=== PATIENT | male | born 2000 | race Hispanic/Latino ===

== ENCOUNTER 2020-12-24 14:34 | Observation (INO) | payer BC ==
[~2020-12-24] VITALS: Ht 165.1 cm; Wt 92.1 kg
[2020-12-24] MEDS ORDERED: SODIUM CHLORIDE 0.9% 1000ML 1,000 ML IV ONE (14:54)
[2020-12-24] MEDS ORDERED: DICYCLOMINE HCL 10 MG/ML 2ML AMP IM ONE (14:55)
[2020-12-24] MEDS ORDERED: MAG HYDROX/AL HYDROX/SIMETH ES 30 ML SUSP UDCUP ONE (14:55)
[2020-12-24] MEDS ORDERED: LIDOCAINE HCL 2% VISCOUS 15 ML UDCUP ONE (14:55)
[2020-12-24] MEDS ORDERED: FAMOTIDINE 20MG TAB 20 MG TAB ONE (14:56)
[2020-12-24 14:58] LABS: BASOPHILS % (AUTO) 0.3 % (0.0-5.0); EOSINOPHILS % (AUTO) 0.3 % (0.0-8.0); HEMATOCRIT 41.8 % (42-54); LYMPHOCYTES % (AUTO) 11.1 % (21.0-51.0); MEAN CORPUSCULAR HEMOGLOBIN 29.9 pg (27.0-33.0); MEAN CORPUSCULAR HGB CONC 35.2 g/dL (32.0-36.0); MONOCYTES % (AUTO) 4.9 % (3.0-13.0); NEUTROPHILS % (AUTO) 82.9 % (40.0-77.0); PLATELET COUNT (AUTO) 246 K/uL (130-400); RED BLOOD CELL COUNT(AUTO) 4.92 MIL/uL (4.50-6.20); RED CELL DISTRIBUTION WIDTH 11.9 % (11.0-15.5); WHITE BLOOD COUNT (AUTO) 18.8 K/uL (4.8-10.8)
[2020-12-24 15:06] LABS: APPEARANCE,URINE Clear (CLEAR); BILIRUBIN,URINE Negative (NEGATIVE); COLOR,URINE Yellow (YELLOW); GLUCOSE, URINE (UA) Negative (NEGATIVE); KETONES,URINE Negative (NEGATIVE); LEUKOCYTE ESTERASE ,URINE Negative (NEGATIVE); NITRATE,URINE Negative (NEGATIVE); OCCULT BLOOD,URINE Negative (NEGATIVE); PH,URINE 5.5 (5.0-8.0); PROTEIN,URINE Negative (NEGATIVE)
[2020-12-24 15:08] LABS: CREATININE 0.9 mg/dL (0.5-1.5); POTASSIUM 3.9 mmol/L (3.5-5.1)
[2020-12-24 15:13] LABS: ALBUMIN 4.4 g/dL (3.5-5.0); BILIRUBIN,TOTAL 0.6 mg/dL (0.2-1.0); TOTAL PROTEIN, SERUM 7.5 g/dL (6.0-8.3)
[2020-12-24] MEDS ORDERED: MORPHINE SULFATE 2 MG/ML 1ML SYG ONE (15:34)
[2020-12-24] MEDS ORDERED: ZOSYN 3.375GM+NS 50ML 50 ML IV ONE (15:34)
[2020-12-24] MEDS ORDERED: IOHEXOL-350 75 ML VIAL IV ONE (16:26)
[2020-12-24] MEDS ORDERED: LACTATED RINGERS 1000ML 1,000 ML IV SCH (17:45)
[2020-12-24] MEDS ORDERED: LACTATED RINGERS 1000ML 1,000 ML IV ONE (18:26)
[2020-12-24] MEDS ORDERED: ACETAMINOPHEN 325 MG TAB PO PRN ×2 (20:45)
[2020-12-24] MEDS ORDERED: ONDANSETRON HCL 4 MG/2 ML VIAL IV PRN (20:45)
[2020-12-24] MEDS ORDERED: MAG HYDROX/AL HYDROX/SIMETH ES 30 ML SUSP UDCUP PO PRN (20:45)
[2020-12-24] MEDS ORDERED: DiphenhydrAMINE HCL 50 MG/ML VIAL IV PRN (20:45)
[2020-12-24] MEDS ORDERED: GUAIFENESIN-DM 200/20 MG 10 ML PO PRN (20:45)
[2020-12-24] MEDS ORDERED: MORPHINE SULFATE 2 MG/ML 1ML SYG IV PRN ×2 (20:45→21:00)
[2020-12-24] MEDS: LACTATED RINGERS 1000ML 1,000 ML IV SCH (20:45)
[2020-12-24] MEDS ORDERED: NITROGLYCERIN 0.4 MG SL TAB SL PRN (20:45)
[2020-12-24] MEDS ORDERED: DIPHENHYDRAMINE HCL 25 MG CAPSULE PO PRN (20:45)
[2020-12-24] MEDS ORDERED: LACTULOSE 20 GM/30 ML UDCUP PO PRN (20:45)
[2020-12-24 21:28] VITALS: BP 102/42
[2020-12-24] MEDS: FAMOTIDINE/PF 20 MG/2 ML VIAL IV SCH (22:26)
[2020-12-24] MEDS ORDERED: ZOSYN 3.375GM+NS 50ML 50 ML IV SCH (23:00)
[2020-12-24] MEDS ORDERED: METRONIDAZOLE 500MG/100ML BAG 0 ML ONE (23:08)
[2020-12-24 23:51] VITALS: BP 98/50
[2020-12-25 04:06] VITALS: BP 114/49
[2020-12-25] MEDS: METRONIDAZOLE 500MG/100ML BAG 100 ML IVPB SCH ×2 (05:07→14:18)
[2020-12-25] MEDS: LACTATED RINGERS 1000ML 1,000 ML IV SCH (05:12)
[2020-12-25 05:17] LABS: BASOPHILS % (AUTO) 0.3 % (0.0-5.0); EOSINOPHILS % (AUTO) 0.7 % (0.0-8.0); HEMATOCRIT 41.7 % (42-54); LYMPHOCYTES % (AUTO) 25.7 % (21.0-51.0); MEAN CORPUSCULAR HEMOGLOBIN 28.8 pg (27.0-33.0); MEAN CORPUSCULAR HGB CONC 33.3 g/dL (32.0-36.0); MEAN CORPUSCULAR VOLUME 86.5 fL (80-100); MONOCYTES % (AUTO) 10.6 % (3.0-13.0); NEUTROPHILS % (AUTO) 62.4 % (40.0-77.0); PLATELET COUNT (AUTO) 233 K/uL (130-400); RED BLOOD CELL COUNT(AUTO) 4.82 MIL/uL (4.50-6.20); RED CELL DISTRIBUTION WIDTH 11.9 % (11.0-15.5); WHITE BLOOD COUNT (AUTO) 10.6 K/uL (4.8-10.8)
[2020-12-25 05:24] LABS: CREATININE 0.9 mg/dL (0.5-1.5); POTASSIUM 3.5 mmol/L (3.5-5.1)
[2020-12-25 08:25] VITALS: BP 102/51
[2020-12-25] MEDS ORDERED: LEVOFLOXACIN 750 MG/D5W 150 ML 150 ML IV SCH (09:00)
[2020-12-25] MEDS: FAMOTIDINE/PF 20 MG/2 ML VIAL IV SCH (09:27)
[2020-12-25 11:00] VITALS: BP 108/47
[2020-12-25] MEDS ORDERED: CIPR500S5 PO (16:21)
[2020-12-25] MEDS ORDERED: METR-172 PO (16:21)
[2020-12-25 17:05] VITALS: BP 103/49
== END 2020-12-25 17:40 | disposition home or self-care (01) ==
LOC: EDH 14:34 → EDHIP 17:40 → 3DH 20:51
PROVIDERS: ADMIT Internal Medicine; ATTEND Internal Medicine
DX: R10.9 Unspecified abdominal pain (principal); Z20.822 Contact with and (suspected) exposure to COVID-19; D72.829 Elevated white blood cell count, unspecified; R11.0 Nausea; Z88.0 Allergy status to penicillin
CPT/HCPCS: 36415 ×2; 74177; 80048; 80053; 81003; 83690; 84484; 85025 ×2; 87426; 96361; 96365; 96366; 96375 ×2; 96376; 99291; G0378 ×24; J0500; J1956; J2543 ×2; J3490 ×4; J7030; J7120; Q9967; U0003

== ENCOUNTER 2021-07-24 00:28 | Observation (INO) | payer BC ==
[~2021-07-24] VITALS: Ht 165.1 cm; Wt 90.5 kg
[2021-07-24] VITALS (19 sets, daily range): BP systolic 107–161; BP diastolic 52–82
[~2021-07-24 00:28] MED LIST: CIPR500S5 PO; METR-172 PO
[2021-07-24 01:37] LABS: BASOPHILS % (AUTO) 0.3 % (0.0-5.0); EOSINOPHILS % (AUTO) 0.7 % (0.0-8.0); HEMATOCRIT 42.1 % (42-54); LYMPHOCYTES % (AUTO) 9.3 % (21.0-51.0); MEAN CORPUSCULAR HEMOGLOBIN 29.6 pg (27.0-33.0); MEAN CORPUSCULAR HGB CONC 34.9 g/dL (32.0-36.0); MEAN CORPUSCULAR VOLUME 84.9 fL (79-99); MONOCYTES % (AUTO) 6.2 % (3.0-13.0); NEUTROPHILS % (AUTO) 82.7 % (40.0-77.0); PLATELET COUNT (AUTO) 233 K/uL (130-400); RED BLOOD CELL COUNT(AUTO) 4.96 MIL/uL (4.50-6.20); RED CELL DISTRIBUTION WIDTH 12.1 % (11.0-15.5)
[2021-07-24 01:38] LABS: APPEARANCE,URINE Clear (CLEAR); BILIRUBIN,URINE Negative (NEGATIVE); COLOR,URINE Yellow (YELLOW); GLUCOSE, URINE (UA) Negative (NEGATIVE); KETONES,URINE Trace mg/dL (NEGATIVE); LEUKOCYTE ESTERASE ,URINE Trace (NEGATIVE); NITRATE,URINE Negative (NEGATIVE); OCCULT BLOOD,URINE Negative (NEGATIVE); PROTEIN,URINE Trace mg/dL (NEGATIVE)
[2021-07-24 01:43] LABS: CARBON DIOXIDE 27 mmol/L (21-32); CHLORIDE 105 mmol/L (101-111); CREATININE 0.9 mg/dL (0.5-1.5); GLOMERULAR FILTR. RATE CALC 112 mL/min (>60); GLUCOSE,RANDOM 124 mg/dL (70-105); POTASSIUM 3.5 mmol/L (3.5-5.1); SODIUM SERUM 143 mmol/L (136-145); UREA NITROGEN, BLOOD 11 mg/dL (7-18)
[2021-07-24 01:47] LABS: ALANINE AMINOTRANSFERASE 141 U/L (12-78); ALBUMIN 4.4 g/dL (3.5-5.0); ASPARTATE AMINOTRANSFERASE 52 U/L (10-37); BILIRUBIN,TOTAL 0.4 mg/dL (0.2-1.0); TOTAL PROTEIN, SERUM 7.7 g/dL (6.0-8.3)
[2021-07-24 01:49] LABS: LIPASE < 50 U/L (114-286)
[2021-07-24 01:58] LABS: RBC,URINE 0-1 /HPF (0-1)
[2021-07-24 01:59] LABS: BACTERIA,URINE None Seen /HPF (None Seen); MUCUS,URINE Few LPF (None Seen); SQUAMOUS EPITHELIAL CELL,UR None Seen /HPF (0-2)
[2021-07-24] MEDS ORDERED: METOCLOPRAMIDE 10 MG/2 ML VIAL IVP ONE (02:30)
[2021-07-24] MEDS ORDERED: 0.9%NACL 1000ML 1,000 ML IV ONE ×2 (02:30→06:00)
[2021-07-24] MEDS ORDERED: ONDANSETRON 4MG INJ IVP ONE (02:30)
[2021-07-24] MEDS ORDERED: KETOROLAC 30MG VIAL (30MG/ML) IV ONE (02:30)
[2021-07-24] MEDS ORDERED: IOHEXOL 350 MG/ML 100ML INFUS..BTL IV ONE (02:46)
[2021-07-24] MEDS ORDERED: MORPHINE 2 MG SYG IVP ONE (06:00)
[2021-07-24] MEDS ORDERED: ZOSYN 3.375GM+NS 50ML 3.38 GM in 0.9%NACL 50ML 50 ML IV ONE (06:00)
[2021-07-24] MEDS ORDERED: ZOSYN 3.375GM+NS 50ML 50 ML ONE (06:09)
[2021-07-24] MEDS ORDERED: ZOSYN 3.375GM+NS 50ML 3.38 GM in 0.9%NACL 50ML 50 ML IV SCH (07:00)
[2021-07-24] MEDS ORDERED: ONDANSETRON 4MG INJ IV PRN (07:00)
[2021-07-24] MEDS ORDERED: MORPHINE 4 MG SYG IM PRN (07:30)
[2021-07-24] MEDS ORDERED: MORPHINE 2 MG SYG IVP PRN (07:30)
[2021-07-24] MEDS: LACTATED RINGERS 1000ML 1,000 ML IV SCH ×5 (08:26→17:00)
[2021-07-24] MEDS: FAMOTIDINE 20MG VIAL IV SCH ×2 (08:26→19:54)
[2021-07-24] MEDS: ZOSYN 3.375GM+NS 50ML 50 ML IV SCH ×2 (12:40→19:55)
[2021-07-24] MEDS ORDERED: 0.9%NACL 50ML 50 ML IV ONE (12:51)
[2021-07-24] MEDS ORDERED: MIDAZOLAM HCL 1 MG/ML 2ML VIAL ONE (14:55)
[2021-07-24] MEDS ORDERED: ONDANSETRON 4MG INJ ONE (14:56)
[2021-07-24] MEDS ORDERED: LIDOCAINE PF 100MG/5ML (2%) SYRINGE 5ML ONE (15:09)
[2021-07-24] MEDS ORDERED: PROPOFOL 10 MG/ML 20ML VIAL IV ONE (15:09)
[2021-07-24] MEDS ORDERED: SUCCINYLCHOLINE CHLORIDE 20 MG/ML 10 ML VIAL ONE (15:09)
[2021-07-24] MEDS ORDERED: ROCURONIUM 10MG/1ML SYR 10 MG/ML ML ONE (15:09)
[2021-07-24] MEDS ORDERED: FENTANYL CITRATE PF 50 MCG/1 ML 5ML AMP IV ONE (15:10)
[2021-07-24] MEDS ORDERED: DEXAMETHASONE SOD PHOSPHATE 10MG/ML 1ML VIAL ONE (15:21)
[2021-07-24] MEDS ORDERED: BUPIVACAINE/EPI/PF 0.25% 30ML VIAL IJ ONE (15:33)
[2021-07-24] MEDS ORDERED: LIDOCAINE HCL 1% 20 ML VIAL ONE (15:33)
[2021-07-24] MEDS ORDERED: NEOSTIGMINE 5MG/5ML SYR IV ONE (15:50)
[2021-07-24] MEDS ORDERED: GLYCOPYRROLATE 1 MG/5 ML SYRINGE ONE (15:50)
[2021-07-24] MEDS ORDERED: MEPERIDINE-PF 25 MG/ML SYG ONE (16:20)
[2021-07-25] MEDS: LACTATED RINGERS 1000ML 1,000 ML IV SCH ×2 (02:58→05:08)
[2021-07-25] MEDS: ZOSYN 3.375GM+NS 50ML 50 ML IV SCH ×2 (03:11→13:41)
[2021-07-25 03:54] VITALS: BP 141/79
[2021-07-25 08:00] VITALS: BP 131/77
[2021-07-25] MEDS: FAMOTIDINE 20MG VIAL IV SCH (09:21)
[2021-07-25 11:51] VITALS: BP 124/60
[2021-07-25 16:00] VITALS: BP 132/78
== END 2021-07-25 16:50 | disposition home or self-care (01) ==
LOC: EDH 00:28 → EDHIP 06:43 → 3BH 17:22
PROVIDERS: ADMIT Internal Medicine; ATTEND Internal Medicine
DX: K35.80 Unspecified acute appendicitis (principal); Z20.822 Contact with and (suspected) exposure to COVID-19; E86.9 Volume depletion, unspecified; E66.01 Morbid (severe) obesity due to excess calories; R11.10 Vomiting, unspecified; Z68.33 Body mass index [BMI] 33.0-33.9, adult
CPT/HCPCS: 36415; 44970; 74177; 80053; 81001; 83690; 85025; 87635; 96361 ×2; 96365; 96366 ×3; 96375; 96376 ×2; 99285; A4344; A4452; A4600; A4649 ×6; A4930 ×2; C1769 ×3; G0378 ×33; J0330; J1100; J1885; J2001; J2175; J2250; J2405 ×3; J2543 ×7; J2704; J2710; J2765; J3010; J3490 ×5; J7030 ×2; J7120 ×3; Q9967